=== PATIENT | female | born 1940 | race Caucasian/White ===

== ENCOUNTER 2018-02-28 06:31 | Day surgery (SDC) | payer OTHER ==
[~2018-02-28 06:31] MED LIST: CARVEDILOL25 MG PO; HUMULIN 70100 UNIT/2 SUBCUTANEO; LOSARTAN-HCTZ1 EAC1 PO; METFORMIN HCL850 MG PO; SIMVASTATIN40 MG PO
[2018-02-28] MEDS ORDERED: MACROBID 100 M100 MG PO (09:32)
[2018-02-28] MEDS ORDERED: ULTRACET PO (09:33)
== END 2018-02-28 12:50 | disposition home or self-care (01) ==
LOC: CIR.AMB 06:31
DX: N81.3 Complete uterovaginal prolapse (principal); N39.3 Stress incontinence (female) (male)
CPT/HCPCS: 57106; 57210; 57288; C1771

== ENCOUNTER 2020-04-29 | Outpatient (CLI) | payer OTHER ==
[~2020-04-29] MED LIST changes: +MACROBID 100 M100 MG PO; +ULTRACET PO
== END 2020-04-29 10:00 | disposition home or self-care (01) ==
LOC: PPH VACUNA
PROVIDERS: ATTEND Emergency Medicine Pediatric Emergency Medicine
DX: Z23 Encounter for immunization (principal)